=== PATIENT | male | born 1975 | race Caucasian/White ===

== ENCOUNTER 2016-12-04 10:50 | Emergency (ER) | payer OTHER ==
[~2016-12-04] VITALS: Ht 177.8 cm; Wt 79.4 kg
[~2016-12-04 10:50] MED LIST: HYDROCODONE BIT1 T11 PO; KEFLEX500 MG PO; PREDNISONE50 MG PO; VICODIN ES 7501 TAB PO
[2016-12-04] MEDS ORDERED: NAPROSYN500 MG PO (11:06)
== END 2016-12-04 11:56 | disposition home or self-care (01) ==
LOC: ED 10:50
DX: M25.512 Pain in left shoulder (principal); R03.0 Elevated blood-pressure reading, without diagnosis of hypertension; F17.200 Nicotine dependence, unspecified, uncomplicated; Z88.0 Allergy status to penicillin

== ENCOUNTER 2017-04-01 08:37 | Emergency (ER) | payer OTHER ==
[~2017-04-01] VITALS: Ht 177.8 cm; Wt 79.4 kg
[~2017-04-01 08:37] MED LIST changes: +NAPROSYN500 MG PO
[2017-04-01] MEDS ORDERED: PREDNISONE50 MG PO (10:22)
[2017-04-01] MEDS ORDERED: APAP325 MG PO (10:22)
== END 2017-04-01 10:47 | disposition home or self-care (01) ==
LOC: ED 08:37
DX: S86.911A Strain of unspecified muscle(s) and tendon(s) at lower leg level, right leg, initial encounter (principal); F17.200 Nicotine dependence, unspecified, uncomplicated; Z88.0 Allergy status to penicillin; X58.XXXA Exposure to other specified factors, initial encounter; Y93.89 Activity, other specified; Y92.89 Other specified places as the place of occurrence of the external cause; Y99.9 Unspecified external cause status

== ENCOUNTER → 2017-05-27 | Outpatient (CLI) | payer OTHER ==
[~2017-05-27] MED LIST changes: +APAP325 MG PO
[2017-05-27 18:40] LABS: BODY FLUID WBC 41565 /uL
[2017-05-27 21:19] LABS: BF LYMPHOCYTES 4 %; BF MACROPHAGES 16 %; BF NEUTROPHILS 80 %
[2017-05-28 16:08] LABS: ACID FAST SMEAR Negative (.); ACID FAST SPEC PROCESSING Concentration (.)
== END | disposition home or self-care (01) ==
LOC: LAB 17:31
PROVIDERS: Orthopaedic Surgery
DX: M25.461 Effusion, right knee (principal)

== ENCOUNTER → 2017-07-02 | Outpatient (CLI) | payer OTHER ==
[2017-07-02 12:42] LABS: BASO # 0.1 10*3/uL (0.0-0.1); BASO % 0.7 % (0.0-1.0); EOS # 0.4 10*3/uL (0.0-0.4); EOS % 3.1 % (1.0-4.0); HEMATOCRIT 48.2 % (42.0-52.0); HEMOGLOBIN 16.2 g/dl (14.0-18.0); LYMPH # 2.2 10*3/uL (1.3-4.4); LYMPH % 19.2 % (27.0-41.0); MEAN CELL VOLUME 86.5 fl (80.0-94.0); MEAN CORPUSCULAR HGB 29.1 pg (27.0-31.0); MEAN CORPUSCULAR HGB CONC 33.6 g/dl (33.0-37.0); MEAN PLATELET VOLUME 10.2 fl (9.6-12.3); MONO # 0.8 10*3/uL (0.1-1.0); MONO % 6.7 % (3.0-9.0); NEUT # 8.1 10*3/uL (2.3-7.9); NEUT % 69.6 % (47.0-73.0); PLATELET COUNT AUTOMATED 278 10*3/uL (130-400); RED BLOOD COUNT 5.57 10*6/uL (4.50-5.90); RED CELL DISTRI WIDTH 14.2 % (0-14.5); WHITE BLOOD COUNT 11.7 10*3/uL (4.8-10.8)
[2017-07-03 07:07] LABS: HEPATITIS B SURFACE AG Negative (Negative); HEPATITIS C VIRUS ANTIBODY <0.1 s/co (0.0-0.9)
[2017-07-03 09:08] LABS: RHEUMATOID ARTHRITIS FACTOR 149.1 IU/mL (0.0-13.9)
[2017-07-04 22:06] LABS: CCP ANTIBODIES IGG/IGA 230 units (0-19)
[2017-07-05 12:11] LABS: ANTI-RNP ANTIBODIES <0.2 AI (0.0-0.9); ANTI-SMITH ANTIBODIES <0.2 AI (0.0-0.9); LUPUS DRVVT 51.5 sec (0.0-47.0); PTT-LA 41.1 sec (0.0-51.9)
== END ==
LOC: LAB 10:57 → MRI 11:00
PROVIDERS: Orthopaedic Surgery
DX: M65.861 Other synovitis and tenosynovitis, right lower leg (principal); M25.861 Other specified joint disorders, right knee; M25.461 Effusion, right knee; R93.8 Abnormal findings on diagnostic imaging of other specified body structures

== ENCOUNTER 2020-11-01 08:36 | Emergency (ER) | payer OTHER ==
[~2020-11-01] VITALS: Wt 72.6 kg
== END 2020-11-01 09:07 | disposition home or self-care (01) ==
LOC: ED 08:36
DX: R10.31 Right lower quadrant pain (principal); Z88.0 Allergy status to penicillin; Z79.899 Other long term (current) drug therapy

== ENCOUNTER 2021-09-06 10:36 | Emergency (ER) | payer OTHER ==
[~2021-09-06] VITALS: Ht 177.8 cm; Wt 70.3 kg
[2021-09-06 11:46] LABS: HEMATOCRIT 43.1 % (42.0-52.0); MEAN CELL VOLUME 85.9 fl (80.0-94.0); MEAN CORPUSCULAR HGB 28.9 pg (27.0-31.0); MEAN CORPUSCULAR HGB CONC 33.6 g/dl (33.0-37.0); MEAN PLATELET VOLUME 9.1 fl (9.6-12.3); PLATELET COUNT AUTOMATED 288 10*3/uL (130-400); RED BLOOD COUNT 5.02 10*6/uL (4.50-5.90); RED CELL DISTRI WIDTH 12.7 % (0-14.5); WHITE BLOOD COUNT 27.8 10*3/uL (4.8-10.8)
[2021-09-06 12:01] LABS: PLATELET SUFFICIENCY NORMAL (NORMAL); TOTAL CELLS COUNTED 100 #CELLS
[2021-09-06 12:02] LABS: ALBUMIN 3.3 gm/dl (3.1-4.5); ALKALINE PHOSPHATASE 107 U/L (45-117); BUN 13 mg/dl (7-24); CHLORIDE 104 mmol/L (98-107); CREATININE 0.95 mg/dL (0.70-1.30); POTASSIUM 4.2 mmol/L (3.5-5.1); SGOT/AST 12 IU/L (3-35); SGPT/ALT 19 U/L (12-78); SODIUM 136 mmol/L (136-145); TOTAL PROTEIN 7.9 gm/dL (6.4-8.2)
[2021-09-06] MEDS ORDERED: VIBRAMYCIN100 MG PO (13:03)
[2021-09-06 13:32] LABS: BILIRUBIN Negative (Negative); BLOOD Trace-Lysed (Negative); CLARITY Turbid (Clear); COLOR Yellow (Yellow); GLUCOSE Negative (Negative); KETONE Negative (Negative); LEUKO ESTERASE 2+ (Negative); NITRITE Negative (Negative); PH 7.5 (4.5-8.0)
[2021-09-06 13:43] LABS: BACTERIA 3+; WBC 41-50 wbc/hpf (0-5)
== END 2021-09-06 13:22 | disposition home or self-care (01) ==
LOC: ED 10:36
PROVIDERS: Physician Assistant
DX: N45.1 Epididymitis (principal); F17.200 Nicotine dependence, unspecified, uncomplicated; Z88.0 Allergy status to penicillin

== ENCOUNTER 2022-10-06 11:13 | Emergency (ER) | payer OTHER ==
[~2022-10-06] VITALS: Ht 177.8 cm; Wt 72.6 kg
[~2022-10-06 11:13] MED LIST changes: +VIBRAMYCIN100 MG PO
== END 2022-10-06 12:52 | disposition home or self-care (01) ==
LOC: ED 11:13
DX: T15.02XA Foreign body in cornea, left eye, initial encounter (principal); Z88.0 Allergy status to penicillin; W22.8XXA Striking against or struck by other objects, initial encounter; Y93.82 Activity, spectator at an event; Y92.89 Other specified places as the place of occurrence of the external cause; Y99.8 Other external cause status